=== PATIENT | female | born 1990 | race African-American/Black ===

== ENCOUNTER 2021-02-07 22:14 | Emergency (ER) | payer SELFPAY ==
[2021-02-08 17:21] LABS: SARS-CoV-2 PCR by NAA Not Detected (NotDetected)
== END 2021-02-08 00:09 | disposition home or self-care (01) ==
LOC: ERS 22:14
DX: J30.9 Allergic rhinitis, unspecified (principal); R42 Dizziness and giddiness; F17.210 Nicotine dependence, cigarettes, uncomplicated; Z20.822 Contact with and (suspected) exposure to COVID-19
CPT/HCPCS: 93005; U0003; U0005

== ENCOUNTER 2022-04-24 05:53 | Emergency (ER) | payer SELFPAY | END 2022-04-24 07:04 | disposition home or self-care (01) | LOC: ERS 05:53 | DX: S32.2XXA Fracture of coccyx, initial encounter for closed fracture (principal); F17.210 Nicotine dependence, cigarettes, uncomplicated; W18.30XA Fall on same level, unspecified, initial encounter | CPT/HCPCS: 72170; 72220 ==

== ENCOUNTER 2023-05-06 16:24 | Emergency (ER) | payer SELFPAY ==
[2023-05-06] MEDS ORDERED: HYDROcodone/Acetaminophen 5/325 mg Tablet ONE (17:39)
== END 2023-05-06 18:05 | disposition home or self-care (01) ==
LOC: ERS 16:24
DX: S93.602A Unspecified sprain of left foot, initial encounter (principal); F17.210 Nicotine dependence, cigarettes, uncomplicated; W20.8XXA Other cause of strike by thrown, projected or falling object, initial encounter

== ENCOUNTER 2024-02-01 11:55 | Emergency (ER) | payer SELFPAY ==
[2024-02-01] MEDS ORDERED: Proparacaine 0.5% Opth 15 ML BOT ONE (13:40)
[2024-02-01] MEDS ORDERED: Fluorescein Opthalmic Strip ONE (13:40)
[2024-02-01] MEDS ORDERED: Ibuprofen 800 MG TAB ONE (16:52)
[2024-02-01] MEDS ORDERED: HYDROcodone/Acetaminophen 5/325 mg Tablet ONE (16:52)
== END 2024-02-01 17:05 | disposition home or self-care (01) ==
LOC: ERS 11:55
DX: H11.32 Conjunctival hemorrhage, left eye (principal); F17.210 Nicotine dependence, cigarettes, uncomplicated
CPT/HCPCS: 70486

== ENCOUNTER 2024-12-08 17:12 | Emergency (ER) | payer SELFPAY ==
[2024-12-08] MEDS ORDERED: Ketorolac Tromethamine 30 MG (1 mL) VIAL ONE (17:47)
[2024-12-08] MEDS ORDERED: HYDROcodone/Acetaminophen 5/325 mg Tablet ONE (18:31)
== END 2024-12-08 18:52 | disposition home or self-care (01) ==
LOC: ERS 17:12
DX: S92.252A Displaced fracture of navicular [scaphoid] of left foot, initial encounter for closed fracture (principal); S93.402A Sprain of unspecified ligament of left ankle, initial encounter; F17.210 Nicotine dependence, cigarettes, uncomplicated; X50.0XXA Overexertion from strenuous movement or load, initial encounter
CPT/HCPCS: 29515; 96372; J1885